=== PATIENT | female | born 1930 | race Caucasian/White ===

== ENCOUNTER 2018-12-23 12:22 | Emergency (ER) | payer OTHER, MEDICAID ==
[~2018-12-23] VITALS: Ht 167.6 cm; Wt 62.6 kg
[2018-12-23] MEDS ORDERED: SODIUM CHLORIDE 0.9% 1,000 ML IV ONE (12:28)
[2018-12-23 13:09] LABS: CHLORIDE 105 mEq/L (98-107)
[2018-12-23 13:10] LABS: BASOPHILS % 0.4 % (0.0-2.0); EOSINOPHILS % 2.9 % (0.0-5.0); HEMATOCRIT. 42.7 % (36.0-48.0); HEMOGLOBIN. 14.2 g/dL (12.0-16.0); LYMPHOCYTES % 27.2 % (20.0-50.0); MEAN CORPUSCULAR HEMOGLOBIN 29.3 pg (28.0-32.0); MEAN CORPUSCULAR VOLUME 88.2 fL (81.0-99.0); MONOCYTES % 4.7 % (2.0-8.0); NEUTROPHILS % 64.8 % (40.0-76.0); PLATELET 146 x1000/uL (130-400); RED BLOOD CELL COUNT 4.84 mill/uL (4.2-5.4)
[2018-12-23 13:13] LABS: INR 1.1; PARTIAL THROMBOPLASTIN TIME 27.5 sec (23.4-31.0)
[2018-12-23 13:14] LABS: ETHANOL BLOOD < 10 mg/dL
[2018-12-23 13:18] LABS: LDL CHOLESTEROL 52 mg/dL (5-100)
[2018-12-23 13:19] LABS: CREATINE KINASE 69 IU/L (26-192)
[2018-12-23] MEDS ORDERED: IOHEXOL-350 100 ML BOTTLE ONE (14:26)
[2018-12-23] MEDS ORDERED: ENALAPRIL 2.5MG/2ML VIAL 2ML IV ONE (16:45)
[2018-12-23] MEDS: ENALAPRIL 1.25MG/ML VIAL 1ML IV NR ×2 (17:12→17:49)
[2018-12-23 17:14] VITALS: BP 170/86
== END 2018-12-23 17:56 | disposition short-term general hospital (02) ==
LOC: ER 12:22 → CANBEDREQ 14:56 → ER 17:56
DX: I63.9 Cerebral infarction, unspecified (principal); F03.90 Unspecified dementia, unspecified severity, without behavioral disturbance, psychotic disturbance, mood disturbance, and anxiety; I10 Essential (primary) hypertension; Z86.73 Personal history of transient ischemic attack (TIA), and cerebral infarction without residual deficits; Z88.0 Allergy status to penicillin
CPT/HCPCS: 36415; 70450; 70496; 70498; 71045; 80053; 80320; 82550; 82962; 83721; 83735; 83880; 84484; 85025; 85610; 85730; 93005; 99285; J3490; J7030; Q9967; G0480